=== PATIENT | female | born 1965 | race Caucasian/White ===

== ENCOUNTER 2020-03-27 23:52 | Emergency (ER) | payer MEDICARE, MEDICAID ==
[~2020-03-27] VITALS: Ht 165.1 cm; Wt 77.0 kg
[~2020-03-27 23:52] MED LIST: ABILIFY; INSULIN; METF-416; MULTIVITAMINS; SEE MED SHEET; SYN175
[2020-03-28] MEDS ORDERED: HYDROCODONE/ACETAMINOPHEN 5/325MG TABLET PO ONE (01:00)
[2020-03-28] MEDS ORDERED: IBUPROFEN 600MG TABLET PO ONE (01:00)
[2020-03-28 03:31] VITALS: BP 132/78
== END 2020-03-28 03:32 | disposition home or self-care (01) ==
LOC: ER 23:52
DX: S52.92XB Unspecified fracture of left forearm, initial encounter for open fracture type I or II (principal); E11.9 Type 2 diabetes mellitus without complications; E78.00 Pure hypercholesterolemia, unspecified; F20.9 Schizophrenia, unspecified; E03.9 Hypothyroidism, unspecified; Z79.4 Long term (current) use of insulin; W01.0XXA Fall on same level from slipping, tripping and stumbling without subsequent striking against object, initial encounter; Y93.89 Activity, other specified; Y92.018 Other place in single-family (private) house as the place of occurrence of the external cause
CPT/HCPCS: 73080; 99283

== ENCOUNTER 2023-07-15 11:14 | Emergency (ER) | payer MEDICARE, MEDICAID ==
[~2023-07-15] VITALS: Ht 165.1 cm; Wt 68.0 kg
[2023-07-15 11:17] VITALS: O2SAT 94
[2023-07-15] MEDS ORDERED: IBUP-2029 MT (13:03)
[2023-07-15] MEDS ORDERED: T3 PO (13:03)
[2023-07-15 14:05] VITALS: BP 117/75; PULSE 94; RESP 20; TEMP 98.4
== END 2023-07-15 14:10 | disposition home or self-care (01) ==
LOC: ER 11:52
DX: M25.562 Pain in left knee (principal); E78.00 Pure hypercholesterolemia, unspecified; E11.9 Type 2 diabetes mellitus without complications; W18.30XA Fall on same level, unspecified, initial encounter; Y93.89 Activity, other specified; Y92.89 Other specified places as the place of occurrence of the external cause; Y99.8 Other external cause status; Z86.59 Personal history of other mental and behavioral disorders; Z86.39 Personal history of other endocrine, nutritional and metabolic disease
CPT/HCPCS: 99283; 73562; L1830